=== PATIENT | female | born 1975 | race Caucasian/White ===

== ENCOUNTER 2025-07-25 09:38 | Outpatient (CLI) | payer OTHER | END 2025-07-25 09:39 | disposition home or self-care (01) | LOC: CSHMAMMO 09:38 | PROVIDERS: ATTEND Family Medicine | DX: N64.4 Mastodynia (principal); Z80.3 Family history of malignant neoplasm of breast; R92.333 Mammographic heterogeneous density, bilateral breasts | CPT/HCPCS: 77066; G0279 ==